=== PATIENT | male | born 1985 | race African-American/Black ===

== ENCOUNTER 2023-09-03 01:12 | Inpatient (IN) | payer MEDICAID, OTHER, SELFPAY ==
[2023-09-03 02:04] LABS: #Basophils 0.06 10x3/uL (0.0-0.2); %Basophils 0.8 % (0.0-1.0); %Eosinophils 4.8 % (0.0-10.0); %Monocytes 9.4 % (0.0-10.0); %Neutrophils 46.5 % (42.0-75.0); Hematocrit 33.5 % (42.0-52.0); Hemoglobin 11.9 g/dL (14.0-18.0); Mean Corpuscular HGB CONC 35.5 g/dL (32.0-36.0); Mean Corpuscular Hemoglobin 30.1 pg (27.0-31.0); Mean Corpuscular Volume 84.6 fL (78.0-98.0); Mean Platelet Volume 11.3 fL (7.4-10.4); Platelet Count 336 10x3/uL (130-400); RBC Distribution Width 16.5 % (11.5-14.5); Red Blood Cell (RBC) Count 3.96 mill/uL (4.70-6.10)
[2023-09-03 02:16] LABS: ALT (SGPT) 430 U/L (8-55); AST (SGOT) 154 U/L (5-34); Albumin 3.1 g/dL (3.5-5.0); Alkaline Phosphatase 617 U/L (40-110); Anion Gap 15 mmol/L (10-20); BUN (Urea Nitrogen) 13 mg/dL (8.9-20.6); Bilirubin, Total 8.5 mg/dL (0.2-1.2); Calc. Creatinine Clearance 0 mL/min (70-130); Calcium 9.7 mg/dL (7.8-10.44); Carbon Dioxide 20 mmol/L (22-29); Chloride 107 mmol/L (98-107); Estimated GFR 107; Globulin 3.5 g/dL (2.4-3.5); Glucose 106 mg/dL (70-105); Lipase 24 U/L (8-78); Potassium 3.5 mmol/L (3.5-5.1); Protein, Total 6.6 g/dL (6.0-8.3); Sodium 138 mmol/L (136-145)
[2023-09-03 02:19] LABS: PTT 32.8 sec (22.9-36.1); Prothrombin Time 13.7 sec (12.0-14.7)
[2023-09-03 03:26] LABS: Bacteria/HPF None Seen HPF (None Seen); Bilirubin 2+ (Negative); Blood, Urine Trace (Negative); CAUTI Indications for Culture Pelvic or flank pain; Clarity Clear (Clear); Glucose, Urine (Dipstick) Normal (Negative); Ketone, Urine Trace mg/dL (Negative); Leukocyte 75 Leu/uL (Negative); Nitrite Negative (Negative); Protein, Urine (Dipstick) 30 mg/dL (Neg-Trace); RBC/HPF 0-3 HPF (0-3); Squamous Epithelial None Seen HPF (0-3); pH, Urine 6.5 (5.0-9.0)
[2023-09-03 03:27] LABS: Urine Culture Reflex No No
[2023-09-03 06:31] LABS: HBCM Index 0.09 S/CO (0-0.79); HBsAg Index 0.26 S/CO (0-0.99); Hep A IgM AB NONREACTIVE (NonReactive); Hep A IgM S/CO 0.28 S/CO (0-0.79); Hep B Surf Ag NONREACTIVE S/CO (NonReactive); Hep C IgG Ab NONREACTIVE S/CO (NonReactive); Hep C Index 0.15 S/CO (0-0.79); Hepatitis B Core IgM Abs NONREACTIVE S/CO (NonReactive)
[2023-09-03 08:52] VITALS: BMI 27.1
[2023-09-03] MEDS ORDERED: Acetaminophen 325 MG TAB PO PRN (09:06)
[2023-09-03] MEDS ORDERED: Ondansetron ODT 4 MG TAB PO PRN (09:07)
[2023-09-03] MEDS ORDERED: Senokot S 8.6-50 MG TAB PO PRN (09:36)
[2023-09-03] MEDS ORDERED: Bisacodyl 5 MG TAB PO PRN (09:36)
[2023-09-03] MEDS: Cholestyramine/Aspartame 4 gm Packet PO SCH (11:02)
[2023-09-03 13:28] LABS: MONO NEGATIVE CONTROL ZONE White (Negative) (White); MONO POSITIVE CONTROL Pink Line (Positive) (PINK/RED); Mononucleosis NEGATIVE (NEGATIVE)
[2023-09-03] MEDS: Ondansetron PF 4 MG/2 ML Vial IVP PRN (15:12)
[2023-09-03] MEDS ORDERED: Iopamidol-370 76% 500 ML MDV (1 ML CHARGE) ONE (15:39)
[2023-09-03 16:03] VITALS: BMI 27.1
[2023-09-03 19:15] LABS: Iron 104 ug/dL (65-175); Iron Binding Capacity, Total 263 mcg/dL (261-462)
[2023-09-04 05:58] LABS: Hematocrit 34.6 % (42.0-52.0); Hemoglobin 12.1 g/dL (14.0-18.0); Mean Corpuscular Hemoglobin 30.4 pg (27.0-31.0); Mean Corpuscular Volume 86.9 fL (78.0-98.0); Mean Platelet Volume 10.8 fL (7.4-10.4); Platelet Count 296 10x3/uL (130-400); RBC Distribution Width 16.4 % (11.5-14.5); Red Blood Cell (RBC) Count 3.98 mill/uL (4.70-6.10)
[2023-09-04 06:06] LABS: Anion Gap 14 mmol/L (10-20); BUN (Urea Nitrogen) 9 mg/dL (8.9-20.6); Calc. Creatinine Clearance 152 mL/min (70-130); Calcium 9.3 mg/dL (7.8-10.44); Carbon Dioxide 22 mmol/L (22-29); Chloride 107 mmol/L (98-107); Estimated GFR 116; Glucose 91 mg/dL (70-105); Potassium 4.1 mmol/L (3.5-5.1); Sodium 139 mmol/L (136-145)
[2023-09-04 06:12] LABS: Prothrombin Time 13.4 sec (12.0-14.7)
[2023-09-04 06:13] LABS: ALT (SGPT) 338 U/L (8-55); AST (SGOT) 131 U/L (5-34); Albumin 2.8 g/dL (3.5-5.0); Alkaline Phosphatase 549 U/L (40-110); Bilirubin, Direct 6.3 mg/dL (0.1-0.3); Bilirubin, Total 8.1 mg/dL (0.2-1.2); Protein, Total 6.2 g/dL (6.0-8.3)
[2023-09-04 06:38] LABS: Band 1 % (5-11); Eosinophils 4 % (0-10); Lymphocytes 45 % (21-51); Monocytes 7 % (0-10); Neutrophil 43 % (42-75); Platelet Adequacy Comment Platelets Normal; Poikilocytosis SLIGHT = 6-15 cells HPF (0-5); Polychromasia SLIGHT = 2-3 cells HPF (0-2)
[2023-09-04] MEDS: Enoxaparin 40 MG (0.4 mL) SYRINGE SC SCH (10:00)
[2023-09-04 12:07] LABS: Syphilis Antibody Nonreactive (Nonreactive); Syphilis Antibody Index 0.16 S/CO (<1.00 Non-Reactive)
[2023-09-04 12:27] VITALS: BP 134/80; TEMP 97.5
[2023-09-06 19:37] LABS: CMV DNA-PCR Test Positive < 200 IU/mL (Negative)
[2023-09-07 08:19] LABS: HSV 1 - DNA Negative (Negative); HSV 2 - DNA Negative (Negative)
[2023-09-07 11:35] LABS: ANA Symphony (Qualitative) Negative (Negative); ANA Symphony (Quantitative) 0.2 Ratio (< 0.7 Negative); EliA Vaculitis New Method **** NEW METHOD ****; Mitochondrial Ab Less than 0.5 U/mL (<4 Negative); dsDNA IgG Antibody 0.7 IU/mL (<10 Negative)
== END 2023-09-04 12:28 | disposition home or self-care (01) | DRG 947 ==
LOC: ERS 01:12 → MSONC 08:15
PROVIDERS: ADMIT Hospitalist; ATTEND Family Medicine
DX: R74.01 Elevation of levels of liver transaminase levels (principal); K83.1 Obstruction of bile duct; L29.9 Pruritus, unspecified; R63.4 Abnormal weight loss; K82.8 Other specified diseases of gallbladder; D50.9 Iron deficiency anemia, unspecified; F12.10 Cannabis abuse, uncomplicated; S31.139D Puncture wound of abdominal wall without foreign body, unspecified quadrant without penetration into peritoneal cavity, subsequent encounter; Z98.890 Other specified postprocedural states; Z68.27 Body mass index [BMI] 27.0-27.9, adult
CPT/HCPCS: 36415; 71260; 74177; 74181; 76377; 76705; 80048; 80053; 80074; 80076; 81001; 82103; 82390; 82550; 83516; 83540; 83550; 83605; 83690; 85025; 85610; 85730; 86015; 86038; 86225; 86308; 86780; 87497; 87529; 87798; J2405; Q9967